=== PATIENT | female | born 1955 | race Caucasian/White ===

== ENCOUNTER → 2017-03-02 | Outpatient (CLI) | payer BC ==
[~2017-03-02] MED LIST: ASPIRIN EC81 M1; AVAPRO150 MG; CIPRO250 M1; LOW DOSE ASPIRI81 M2 PO; METOPROLOL TART25 MG PO; PHENERGAN25 M1; SIMVASTATIN20 MG; ZOCOR20 MG PO; ZOFRAN ODT4 MG PO
--- NOTE | ~2017-03-02 | US37 ---
[facility] A Service of [facility] & [facility] RADIOLOGY TEXT RESULTS PATIENT: SMITH MOORE LOCATION: SNIV : 57 UNIT #: [id number] AGE: [address]: Rafal Ross MD SEX: F ORDER DR: [id number] [place] [id number] O MR#: [id number] Acc #: [id number] NAME: SMITH MOORE : 1955 SEX: F STUDY DATE/TIME: 03/02/2017 9:05 UNIT: SNIV ROOM: STUDY DESCRIPTION: US Carotid W/Doppler Bilateral Attending Physician: Rafal Ross M.D. Referring Physician: Rafal Ross M.D. Ordering Physician: Rafal Ross M.D. Primary Care Physician: Rafal Ross M.D. MEDICAL IMAGING REPORT This report is preliminary unless electronic signature is present. EXAM Carotid Doppler bilateral, 03/02/2017 HISTORY Difficulty swallowing and weakness in legs for 2 months. Carotid artery stenosis. FINDINGS Hunt-scale carotid artery images were obtained as well as Doppler waveform spectral analysis and color flow Doppler imaging. The examination was interpreted according to NASCET criteria. There is no hemodynamically significant stenosis in either carotid artery. Peak systolic velocity in the right and left internal carotid arteries is 94 cm/sec and 82 cm/sec, respectively. Antegrade blood flow is seen in both vertebral arteries. There is mild calcified plaque bilaterally. IMPRESSION No hemodynamically significant stenosis in either carotid artery. Dictated by... Cody Ramirez M.D. THIS IS AN ELECTRONICALLY VERIFIED REPORT Cody Ramirez M.D. at 03/03/2017 2:17 PM AZIZA/bonnie TD: 03/02/2017 20:10 JOB #: [id number] MEDICAL IMAGING REPORT Page 1 of 1
== END | disposition home or self-care (01) ==
LOC: SNIV 08:27
DX: I65.29 Occlusion and stenosis of unspecified carotid artery (principal)
CPT/HCPCS: 93880